=== PATIENT | female | born 1985 | race Caucasian/White ===

== ENCOUNTER 2017-12-20 07:17 | Emergency (ER) | payer SELFPAY ==
[~2017-12-20] VITALS: Ht 160 cm; Wt 94.9 kg
[2017-12-20 07:42] LABS: BASOPHIL (%) 0.3 % (0-1); EOSINOPHIL (%) 0.1 % (0-5); HEMATOCRIT 34.4 % (36.0-46.0); HEMOGLOBIN 12.1 G/DL (11.9-15.5); IMMATURE GRANULOCYTE (%) 1.7 % (0.0-0.7); LYMPHOCYTE (%) 9.4 % (15-42); LYMPHOCYTE COUNT 1.1 K/uL (1.0-2.8); MCH 31.7 PG (29.0-34.0); MCHC 35.2 G/DL (30.0-36.0); MCV 90.1 FL (83-99); MONOCYTE (%) 2.8 % (3-12); MONOCYTE COUNT 0.3 K/uL (0-0.8); NEUTROPHIL (%) 85.7 % (45-76); NEUTROPHIL COUNT 10.2 K/uL (1.8-6.4); PLATELET COUNT 297 K/uL (156-360); RBC DIS.WIDTH-CV 11.8 % (11.8-14.6); RBC DIS.WIDTH-SD 38.5 % (39-53); RED BLOOD COUNT 3.82 M/uL (3.80-5.20); WHITE BLOOD COUNT 11.9 K/uL (4.1-10.2)
[2017-12-20 08:11] LABS: ALBUMIN 4.2 G/DL (3.2-4.8); CHLORIDE 102 MEQ/L (99-109); POTASSIUM 3.3 MEQ/L (3.7-5.4); SODIUM 136 MEQ/L (136-147); TOTAL BILIRUBIN 0.3 MG/DL (0.0-1.0)
[2017-12-20 08:15] LABS: APPEARANCE CLEAR ((CLEAR)); BILIRUBIN NEGATIVE; BLOOD NEGATIVE; COLOR COLORLESS ((YELLOW)); GLUCOSE (STRIP) 50; KETONES 5; LEUKOCYTES NEGATIVE; NITRITE NEGATIVE; PROTEIN (STRIP) NEGATIVE; SPECIFIC GRAVITY 1.005 (1.000-1.030); UROBILINOGEN 0.2 MG/DL (0.2-1.0)
[2017-12-20 08:17] LABS: ALKALINE PHOSPHATASE 80 IU/L (3-129); ALT (GPT) 17 IU/L (3-49); AST (GOT) 12 IU/L (2-34); CREATININE 0.5 MG/DL (0.6-1.3); GFR ESTIMATE (CALCULATED) > 59 mL/min/; GLUCOSE 153 mg/dL (70-99); UREA NITROGEN (BUN) 6 mg/dL (9-23)
[2017-12-20 08:21] LABS: TROP-I INTERPRETATION NEGATIVE; TROPONIN-I < 0.01 ng/mL (0.0-0.30)
[2017-12-20] MEDS ORDERED: UNISOM SLEEP AI25 MG PO (12:26)
[2017-12-20 12:52] VITALS: BP 114/77
== END 2017-12-20 12:53 | disposition home or self-care (01) ==
LOC: EME 07:17 → EDBD 07:17 → EME 12:53
PROVIDERS: Nurse Practitioner Family
DX: O99.342 Other mental disorders complicating pregnancy, second trimester (principal); F43.9 Reaction to severe stress, unspecified; O99.512 Diseases of the respiratory system complicating pregnancy, second trimester; R00.0 Tachycardia, unspecified; R94.31 Abnormal electrocardiogram [ECG] [EKG]; Z3A.24 24 weeks gestation of pregnancy; Z88.8 Allergy status to other drugs, medicaments and biological substances
CPT/HCPCS: 71046; 71275; 80053; 81003; 84484; 85025; 85379; 93005; 93970; 99281; 99285; J7030